=== PATIENT | male | born 1960 | race African-American/Black ===

== ENCOUNTER 2020-03-20 10:50 | Day surgery (SDC) | payer OTHER ==
[2020-03-19 14:17] VITALS: BMI 33.9
[~2020-03-20 10:50] MED LIST: ceFAZolin SODIUM 1 GM VIAL IVPB ONE
[2020-03-20] MEDS ORDERED: LIDOCAINE HCL/PF 2% SDV 5ML VIAL ONE (12:39)
[2020-03-20] MEDS ORDERED: PROPOFOL 20 ML ONE (12:39)
[2020-03-20] MEDS ORDERED: MIDAZOLAM HCL 2 MG/2 ML SINGLE DOSE VIAL ONE (12:39)
[2020-03-20] MEDS ORDERED: ceFAZolin SODIUM 1 GM VIAL ONE (12:50)
[2020-03-20] MEDS ORDERED: ceFAZolin SODIUM 1 GM VIAL IVPB ONE (12:54)
--- NOTE | 2020-03-20 13:34 | CONS ---
DATE OF CONSULTATION: 03/20/2020 The patient is a 60-year-old male with history of left flank pain. An ultrasound revealed a left kidney stone. The patient has been having intermittent pain on the left side, does have history of nephrolithiasis, also has frequency, urgency, dysuria, one episode of gross hematuria last month. He denies any trauma. He does have history of dyslipidemia and high blood pressure, for which he takes Crestor. He is also allergic to SHELLFISH and PEANUTS. He denies ethanolism or tobacco. PHYSICAL EXAMINATION: General: A well-developed adult male in no apparent distress. Chest: Clear. Heart: Regular. Abdomen: Soft, with left CVA tenderness. Genitalia: Atraumatic. Testes normal in size and consistency. Prostate is 2+, boggy and smooth. BUN 11 and creatinine 1.1. PSA 0.5. IMPRESSION AT PRESENT: Left renal stone. PLAN: Left extracorporeal shock-wave lithotripsy. Warren [id number]
[2020-03-20 14:06] VITALS: BP 137/65; PULSE 57; TEMP 97.3
--- NOTE | 2020-03-26 16:41 | OP ---
DATE OF OPERATION: DATE OF DICTATION: 03/26/2020 HISTORY OF PRESENT ILLNESS: The patient is a 60-year-old male with a left renal stone. PREOPERATIVE DIAGNOSIS: Left renal colic, left hydronephrosis. POSTOPERATIVE DIAGNOSIS: Left renal colic, left hydronephrosis. OPERATIVE PROCEDURE: Left extracorporeal shockwave lithotripsy. ANESTHESIA: General anesthesia. DESCRIPTION OF PROCEDURE: Under above-stated anesthesia, patient was prepped and draped in the usual sterile manner and placed in the supine position. After proper positioning, the patient underwent 2500 shocks of hydroelectric shock to the left kidney stone. There was good fragmentation. The patient tolerated the procedure well. He returned to the recovery room in good condition. Warren [id number]
== END 2020-03-20 14:10 | disposition home or self-care (01) ==
LOC: JASU-SURG 10:50
PROVIDERS: ATTEND Urology
PROC: 0TF4XZZ Fragmentation in Left Kidney Pelvis, External Approach (ICD-10-PCS; principal; 2020-03-20 13:00)
DX: N13.2 Hydronephrosis with renal and ureteral calculous obstruction (principal)